=== PATIENT | female | born 1955 | race Caucasian/White ===

== ENCOUNTER 2020-07-05 04:21 | Emergency (ER) | payer MEDICAID, OTHER ==
[~2020-07-05] VITALS: Ht 165.1 cm; Wt 99.8 kg
[2020-07-05] MEDS ORDERED: IV NORMAL SALINE 1000 ML BAG IV ONE (04:30)
[2020-07-05] MEDS ORDERED: diphenhydrAMINE 50 MG/1 ML VIAL IV ONE (04:30)
[2020-07-05] MEDS ORDERED: DEXAMETHASONE SOD PHOSPHATE 4 MG INJ IV ONE (04:30)
[2020-07-05] MEDS ORDERED: METOCLOPRAMIDE HCL 10 MG/2 ML VIAL IV ONE ×2 (04:30→06:00)
--- NOTE | 2020-07-05 04:30 | NUR ---
Patient BIB [facility] from home for waking up with CARDONA that started about 3hrs TILT [employer] with N/V. Patient upon arrival A/Ox3 with clear speech.
[2020-07-05] MEDS ORDERED: [UNRECOGNIZED DRUG - REMARK] (04:43)
[2020-07-05] MEDS ORDERED: [UNRECOGNIZED DRUG - REMARK] (04:43)
[2020-07-05] MEDS ORDERED: [UNRECOGNIZED DRUG - REMARK] (04:43)
[2020-07-05] MEDS ORDERED: diphenhydrAMINE 50 MG/1 ML VIAL ONE (04:55)
[2020-07-05] MEDS ORDERED: METOCLOPRAMIDE HCL 10 MG/2 ML VIAL ONE ×2 (04:56→06:00)
[2020-07-05] MEDS ORDERED: DEXAMETHASONE SOD PHOSPHATE 10 MG INJ ONE (04:56)
[2020-07-05 05:22] LABS: BASOPHILS # (AUTO) 0.1 K/uL (0.0-8.0); BASOPHILS % (AUTO) 0.9 % (0.0-2.0); EOSINOPHILS # (AUTO) 0.1 K/uL (0.0-0.7); EOSINOPHILS % (AUTO) 1.7 % (0.0-7.0); HEMOGLOBIN 13.1 g/dL (10.9-14.3); LYMPHOCYTES # (AUTO) 1.3 K/uL (20.0-40.0); LYMPHOCYTES % (AUTO) 21.4 % (20.5-51.5); MEAN CORPUSCULAR HEMOGLOBIN 29.7 uug (24.7-32.8); MEAN CORPUSCULAR HGB CONC 33 g/dL (32.3-35.6); MEAN CORPUSCULAR VOLUME 90.9 fL (75.5-95.3); MONOCYTES # (AUTO) 0.3 K/uL (2.0-10.0); NEUTROPHILS # (AUTO) 4.5 K/uL (1.8-8.9); PLATELET COUNT (AUTO) 178 K/uL (179-408); WHITE BLOOD COUNT (AUTO) 6.3 K/uL (3.8-11.8)
[2020-07-05] MEDS ORDERED: SWABABLE VALVE TRANSFER SET EA MC ONE (05:24)
[2020-07-05] MEDS ORDERED: IOHEXOL 350 100 ML INFUS..BTL ONE (05:24)
[2020-07-05] MEDS ORDERED: IV NORMAL SALINE 250 ML IV ONE (05:24)
[2020-07-05 05:28] LABS: POTASSIUM 3.8 mmol/L (3.5-5.1)
--- NOTE | 2020-07-05 05:30 | NUR ---
Patient out of unit for ct scan via g[facility].
--- NOTE | 2020-07-05 05:55 | NUR ---
Patient back from ct scan. C/O HA. REA made aware.
[2020-07-05] MEDS ORDERED: MORPHINE SULFATE 4 MG/1 ML DISP.SYRIN ONE (05:59)
[2020-07-05] MEDS ORDERED: MORPHINE SULFATE 4 MG/1 ML DISP.SYRIN IV ONE (06:00)
[2020-07-05] MEDS ORDERED: ASPIRIN 325 MG TABLET PO ONE (06:15)
[2020-07-05] MEDS ORDERED: ASPIRIN 325 MG TABLET ONE (06:47)
--- NOTE | 2020-07-05 07:33 | NUR ---
Summary report faxed per insurance request by ER registration staff Krystle.
--- NOTE | 2020-07-05 08:01 | NUR ---
Pandemic disaster charting with "out of ratio" staffing in ER: Patient is sleeping, easily arousble, AOx4 when awake, respiration:easy, moving all extremities, patient reports significant decreased headaches now, pending insurance transfer information@this time.
--- NOTE | 2020-07-05 09:39 | NUR ---
Patient is resting comfortably on gurney with eyes closed, NAD, still waiting for transfer information from patient's insurance
--- NOTE | 2020-07-05 10:56 | NUR ---
Transfer information was received by ER registration staff Seb. Patient and family were updated accordingly.
--- NOTE | 2020-07-05 11:13 | NUR ---
Patient will tranfer to outside Facility per insurance request: [facility] Physician: Vicki ([phone]) Location: ER department RN : Dasha accepted hands off [phone] [facility] ambulance [id number]
--- NOTE | 2020-07-05 12:14 | NUR ---
[employer]mal [employer] Analyst [facility] accepted patient. Patient left with all her belongings.
== END 2020-07-05 12:16 | disposition short-term general hospital (02) ==
LOC: ER 04:27
DX: R51.9 Headache, unspecified (principal); Z20.822 Contact with and (suspected) exposure to COVID-19; R11.2 Nausea with vomiting, unspecified; I10 Essential (primary) hypertension; R73.9 Hyperglycemia, unspecified; R79.1 Abnormal coagulation profile; R94.31 Abnormal electrocardiogram [ECG] [EKG]
CPT/HCPCS: 36415; 70496; 71045; 80048; 84484; 85025; 85730; 87426; 93005; 96361; 96374; 96375; 96376; 99285; J1100; J1200; J2270; J2765 ×2; Q9967; 70030-TC; A4663; J7030; J7050